=== PATIENT | male | born 1945 | race Caucasian/White ===

== ENCOUNTER → 2017-05-14 | Outpatient (CLI) | payer OTHER, BC ==
[~2017-05-14] MED LIST: ASPEC325 PO; CYM/30 PO; METO25TA3 PO; NPR500 PO; OXYC-57 PO
[2017-05-14 14:07] LABS: BASO % 0.6 %; BASO ABS # 0.03 K/uL (0-0.2); COMPLETE YES; EOS % 5.1 %; HEMATOCRIT 39.6 % (42-52); IG% 0.6 %; LYMPH % 21.5 %; LYMPH ABS # 1.14 K/uL (1.2-3.4); MEAN CORPUSCULAR HEMOGLOBIN 33.3 pg (25-34); MEAN CORPUSCULAR HGB CONC 33.6 g/dl (32-36); MEAN PLATELET VOLUME 11.1 fL (7.4-10.4); MONO % 10.2 %; PLATELET COUNT 194 K/uL (130-400); WHITE BLOOD COUNT 5.31 K/uL (4.8-10.8)
[2017-05-14 15:32] LABS: ALT/SGPT 81 U/L (12-78); AST/SGOT 48 U/L (15-37); BLOOD UREA NITROGEN 17 mg/dl (7-18); BUN/CREATININE RATIO 15.1 (10-20); CALCIUM 9.5 mg/dl (8.5-10.1); CARBON DIOXIDE 28 mmol/L (21-32); CHLORIDE 99 mmol/L (98-107); CHOLESTEROL 214 mg/dl (0-200); GLUCOSE 108 mg/dl (70-99); POTASSIUM 4.1 mmol/L (3.5-5.1); SODIUM 135 mmol/L (136-145); TRIGLYCERIDES 101 mg/dl (0-150); VERY LOW DENSITY LIPOPROT CALC 20 mg/dl
[2017-05-14 15:34] LABS: ALB/GLOB RATIO 1.1 (0.9-2); ALKALINE PHOSPHATASE 43 U/L (45-117); CHOLESTEROL/HDL RATIO 2.7; HDL CHOLESTEROL 79 mg/dl; LDL CHOLESTEROL CALCULATED 115 mg/dl
== END | disposition home or self-care (01) ==
LOC: C.LABSPEC 13:10
PROVIDERS: ATTEND Family Medicine
DX: J44.9 Chronic obstructive pulmonary disease, unspecified (principal); I10 Essential (primary) hypertension; Z68.41 Body mass index [BMI] 40.0-44.9, adult

== ENCOUNTER 2020-01-14 10:28 | Observation (INO) ==
--- NOTE | 2019-12-31 09:30 | Anesthesiology Consultation ---
Date of Service December 31, 2019 Assessment & Plan (1) Encounter for pre-operative examination: Chart Review Chart Review: Acceptable Risk for Surgery and Patient seen in Pre Admission Testing Teaching & Discussion Instructed NPO after midnight before surgery, except medications with 15 cc of water. Medication instructions provided according to the PAT guidelines. History Surgery Operation Date: 01/14/20 13:00 Proposed Procedures p Right Total Knee Arthroplasty - Kirit Lopes MD Height/Weight Height: 5 ft 11 in Weight: 130.5 kg Allergies Allergy/AdvReac Type Severity Reaction Status Date / Time oxycodone AdvReac Intermediate IRRITABLE Verified 12/30/19 09:27 Medications Home Medications Medication Instructions Recorded Confirmed Last Taken naproxen 500 mg tablet,delayed 500 mg PO DAILY PRN tab 11/05/19 12/30/19 Unknown release garlic 1,000 mg PO QAM 12/30/19 12/30/19 Unknown metoprolol tartrate 50 mg tablet 50 mg PO BID 12/30/19 12/30/19 Unknown losartan 25 mg PO QAM 12/31/19 12/31/19 Unknown Past Medical History Medical History Anxiety no medications Colon polyp COPD (chronic obstructive pulmonary disease) Has inhalers prescribed but does not use them. Depression no medications Hypertension H/O noncompliance with meds; recently seen by PCP after ED visit for chest pain (stress echo negative for ischemia) and reports now being compliant with Losartan and Metoprolol. Mesothelioma Morbid obesity Osteoarthritis Post traumatic stress disorder no medications Right knee DJD (Chronic) Sacroiliitis (Chronic) Sleep apnea cpap Exercise / Class Metabolic Activity III < 4 Walking/Shop/Light housework (Denies CP or SOB with ambulation on one level. +SOB with 1 FOS.) Past Family History Family History Other No family history of adverse response to anesthesia Past Surgical History Surgical History History of cataract surgery bilateral History of colonoscopy History of esophagogastroduodenoscopy (EGD) History of tonsillectomy Status post left partial knee replacement Past Anesthesia History No Hx of Anesthesia Complications and No Family Hx of Anesthesia Complications History of PONV No Hx of PONV and No Hx of Motion Sickness Social History Smoking Status: Never smoker tobacco type: smokeless tobacco Do You Dip or Chew Tobacco: Yes (1can/1 day (advised)) Hx Alcohol Use: Yes Alcohol type: wine alcohol intake frequency: 3 or more drinks per day (6+, starting at 7PM, none earlier) Hx Substance Use: No substance use type: does not use Review of Systems Pt denies any recent chest pain, shortness of breath, palpitations above baseline, cough, fever or URI. Physical Exam Vital Signs BP: 158/90 (pt is anxious today, got lost on the way to appt. Reports compliance with BP meds.) P: 65bpm SPO2: 97% RA T: 98.3 F R: 18 Constitutional + morbidly obese ENMT Mouth: + dentures (upper only) and + edentulous Thyromental Distance: < 3.5 Finger Breadths (3) Mallampati Class: III Neck + short neck, + thick neck and + facial hair (large bushy gray, shorter around mouth); neck extension not limited Respiratory normal respiratory effort Auscultation: lungs clear to auscultation bilaterally and + diminished lung sounds Cardiovascular Rate/Rhythm: regular rate and regular rhythm Heart Sounds: no murmur Very distant heart sounds. Somewhat obscured by bowel sounds. Testing Laboratory Results 12/31/19 09:40 12/31/19 09:40 PT 10.3 Seconds (9.0-12.0) 12/31/19 09:40 INR 1.0 (0.9-1.1) 12/31/19 09:40 APTT 28.4 Seconds (21.0-31.0) 12/31/19 09:40 Hemoglobin A1c 6.1 % (4.5-5.6) H 12/31/19 09:40 Blood Type A Positive 12/31/19 09:40 Antibody Screen NEGATIVE 12/31/19 09:40 Electrocardiogram Date: 03/17/19 Findings: + NSR @ (61bpm) Septal infarct, age undetermined. Compared with EKG of 06/23/2018, septal infarct is now present. Stress Test Date: 12/17/19 Type: nuclear Resting EF: 61% Increased GI uptake, soft tissue attenuation and motion. Fair quality study. Normal gated MPI wall motion and EF. There is a small in size, mild intensity, resting MPI defect of the distal inferior and basal lateral myocardium. The basal defect resolves with stress and the inferior defect become smaller this is suggestive of artifact. A small distal inferior infarct cannot be excluded. No ischemia suggested. Low risk, mildly abnormal study. Other Testing CT angios chest 12/16/2019 Multiple stable subcentimeter pulmonary nodules in both lungs, most appear postinflammatory or benign. Additional follow-up in 12 months is recommended. 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 No evidence of pulmonary embolism. No evidence of aortic dissection or significant aneurysm. Probable small intrarenal calculi. No hydronephrosis. 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 This is unchanged. Coronary vascular calcifications.
--- NOTE | 2019-12-31 09:40 | PAT Medication Instructions ---
Medication Instructions Date of Service December 31, 2019 Home Medications naproxen 500 mg tablet,delayed release 500 mg PO DAILY PRN garlic 1,000 mg PO QAM metoprolol tartrate 50 mg tablet 50 mg PO BID losartan 25 mg PO QAM ASK your surgeon for instructions naproxen 500 mg tablet,delayed release 500 mg PO DAILY PRN STOP taking 2 weeks before surgery If surgery is within 2 weeks, stop taking as soon as possible. garlic 1,000 mg PO QAM DO NOT take the morning of surgery losartan 25 mg PO QAM Take morning of surgery With a small sip of water, OTHERWISE NOTHING TO EAT OR DRINK AFTER MIDNIGHT: metoprolol tartrate 50 mg tablet 50 mg PO BID Take evening before surgery metoprolol tartrate 50 mg tablet 50 mg PO BID Other Notes If you have any questions please call us at [phone] or [phone] or [phone] or [phone]
[2019-12-31 10:04] LABS: Basophils # (auto) 0.03 K/uL (0-0.2); Basophils % (auto) 0.5 %; Eosinophils # (auto) 0.21 K/uL (0-0.5); Eosinophils % (auto) 3.2 %; Hematocrit (blood only) 43.3 % (42-52); Hemoglobin 14.5 g/dL (14.0-18.0); Immature Granulocytes # (auto) 0.06 K/uL (0.00-0.02); Immature Granulocytes % (auto) 0.9 %; Lymphocytes % (auto) 25.6 %; Mean Corpuscular Hemoglobin 32.7 pg (25-34); Mean Corpuscular Hgb Conc 33.5 g/dL (32-36); Mean Corpuscular Volume 97.5 fL (80-100); Mean Platelet Volume 9.8 fL (7.4-10.4); Monocytes % (auto) 7.5 %; Neutrophils # (auto) 4.13 K/uL (1.4-6.5); Neutrophils % (auto) 62.3 %; Platelet Count 190 K/uL (130-400); RDW Coefficient of Variation 12.9 % (11.5-14.5); RDW Standard Deviation 46.1 fL (36.4-46.3); Red Blood Count 4.44 M/uL (4.7-6.1); White Blood Count 6.63 K/uL (4.8-10.8)
[2019-12-31 10:11] LABS: BUN Creatinine Ratio 17.3 (10-20); Blood Urea Nitrogen 18 mg/dl (7-18); C Reactive Protein < 0.29 mg/dl (0-0.29); Calcium 9.2 mg/dl (8.5-10.1); Carbon Dioxide 32 mmol/L (21-32); Chloride 103 mmol/L (98-107); Creatinine Clr Calc Pharmacy 86.8 ml/min; Est GFR (African American) 80.9; Est GFR (Non-African American) 69.8; Estimated Average Glucose 128 mg/dl; Glucose 104 mg/dl (70-99); Hemoglobin A1C 6.1 % (4.5-5.6); Potassium 4.3 mmol/L (3.5-5.1); Sodium 139 mmol/L (136-145)
[2019-12-31 10:15] LABS: Partial Thromboplastin Time 28.4 Seconds (21.0-31.0); Prothrombin Time 10.3 Seconds (9.0-12.0)
[~2020-01-14 10:28] MED LIST changes: +ACETAMINOPHEN 500 MG TAB PO SCH; -ASPEC325 PO; +BUPIVACAINE 0.5 % 5 MG/1 ML PF 10ML VIAL ONE; +BUPIVACAINE LIPOSOME/PF 266 MG, BUPIVACAINE/EPINEPHRINE 50 ML, SODIUM CHLORIDE 0.9% 30 ... INFIL SCH; +CEFAZOLIN 2000MG 2,000 MG/15 ML SYR IV SCH; -CYM/30 PO; +GABAPENTIN 300 MG CAP PO SCH; +LIDOCAINE HCL 2% 2 ML VIAL/AMP(20MG/ML) INFIL ONE; +LR 500ML BOLUS, THEN 15ML/HR IV SCH; +LR 60ML/HR IV SCH; -METO25TA3 PO; +METOCLOPRAMIDE HCL 10 MG TABLET PO SCH; +MIDAZOLAM HCL 1 MG/ML 2ML VIAL ONE; -NPR500 PO; -OXYC-57 PO; +PROPOFOL IV EMULSION 10 MG/ML 20 ML VIAL IV ONE; +ROPIVACAINE 0.5% 5 MG/ML 30 ML VIAL ONE; +TRANEXAMIC ACID 1,000 MG **IV Intra-op IV SCH
--- NOTE | 2020-01-14 10:39 | History & Physical Bridge Note ---
Date of Service January 14, 2020 History & Physical Bridge Note I have examined the patient, reviewed the History & Physical and in the interval since the performance of the History & Physical I have noted the following changes of clinical significance: no changes noted
[2020-01-14] MEDS ORDERED: BUPIVACAINE LIPOSOME 1.3% 266 MG/20 ML VIAL ONE (10:58)
[2020-01-14] MEDS ORDERED: BACITRACIN INJ 50,000 UNIT VIAL ONE (10:58)
[2020-01-14] MEDS ORDERED: BUPIVACAINE/EPINEPHRINE 0.25% 1:200,000 30 ML VIAL ONE (10:58)
[2020-01-14] MEDS ORDERED: SODIUM CHLORIDE 0.9% PF 50 ML VIAL ONE (10:58)
[2020-01-14] MEDS ORDERED: ONDANSETRON INJ 2 MG/ML 2 ML VIAL IV PRN ×2 (11:35→15:35)
[2020-01-14] MEDS ORDERED: ePHEDrine sulfate 50 MG/ML AMP IV PRN (11:35)
[2020-01-14] MEDS ORDERED: HYDROmorphone INJ 1 MG/ML SYRINGE IV PRN (11:35)
[2020-01-14] MEDS ORDERED: ATROPINE SULFATE 0.1 MG/ML 10ML SYR IV PRN (11:35)
[2020-01-14] MEDS ORDERED: KETOROLAC 30 MG/ML VIAL IV PRN (11:37)
[2020-01-14] MEDS ORDERED: PROPOFOL IV EMULSION 10 MG/ML 20 ML VIAL IV ONE (12:41)
[2020-01-14] MEDS ORDERED: ONDANSETRON INJ 2 MG/ML 2 ML VIAL ONE (12:41)
[2020-01-14] MEDS ORDERED: KETAMINE HCL INJ 50 MG/ML 10 ML VIAL ONE (12:58)
[2020-01-14] MEDS ORDERED: CEFAZOLIN 1000MG 1,000 MG/7.5 ML SYR IV ONE (13:45)
[2020-01-14] MEDS ORDERED: fentaNYL citrate 100 MCG/2 ML VIAL ONE (14:01)
--- NOTE | 2020-01-14 14:17 | Post Operative Brief Note ---
PG Immediate Post Op with CF Date of Surgery January 14, 2020 Pre & Post Diagnosis Operation Date: 01/14/20 12:30 Pre-Op Diagnosis: Right Knee Degenerative Joint Disease Post-Op Diagnosis: Right Knee Degenerative Joint Disease I identified the patient and participated in the time-out.: Yes Procedure Operation Date: 01/14/20 12:30 Actual Procedures p Right Total Knee Arthroplasty(Right) - Kirit Lopes MD Surgeon Kirit Lopes MD President Sales [employer] Ana, PAC Estimated Blood Loss 50 Findings Consistent with Post-Op Diagnosis Fluids 1800 cc Specimens Specimen Description: Permanent specimen A: right knee bone and tissue Drains Lui Catheter (16fr lui catheter placed by ST Jus, without difficulty; lui demonstrates clear yellow urine. Output measured and recorded by anesthesia.) Anesthesia Type Spinal MAC Complications none Disposition Accompanied Patient To Recovery: No Disposition: Recovery Room
--- NOTE | 2020-01-14 14:32 | Operative Report ---
Post Operative Report Pre & Post Diagnosis Operation Date: 01/14/20 12:30 Pre-Op Diagnosis: Right Knee Degenerative Joint Disease Post-Op Diagnosis: Right Knee Degenerative Joint Disease I identified the patient and participated in the time-out.: Yes Procedure Operation Date: 01/14/20 12:30 Actual Procedures p Right Total Knee Arthroplasty(Right) - Kirit Lopes MD Surgeon Kirit Lopes MD Mortgage Analyst Ana, PAC Estimated Blood Loss 50 Findings Consistent with Post-Op Diagnosis Operative findings revealed advanced right knee medial compartment DJD with grade 4 [id number] disease of the medial compartment. The lateral and patellofemoral compartments were pretty well-preserved. He had a moderate-sized joint effusion. Not much in way of eburnation but full-thickness cartilage loss medially. Some small osteophytes medially as well. Fluids 1800 cc. Specimens Right knee sent for pathology. Drains None. Anesthesia Type Spinal MAC Complications none Disposition Accompanied Patient To Recovery: No Disposition: Recovery Room Indications Patient is a 74-year-old gentleman is had a very long history of bilateral knee problems. He underwent a left abducens knee replacement years ago which did not go well really well from the pain standpoint. He continues to bothered by pain in the side but he is developed increased pain discomfort in his right knee. Is been through extensive conservative treatment tried to put knee replacement off as long as possible. He fa with or had a concerning partial knee replacement. Iled all conservative care. He elected proceed with total knee arthroplasty. He had no interest in proceeding Description of Procedure Operative implants consist of: 1. Biomet Vanguard size 72.5 right posterior by femoral component. 2. Biomet size 75 tibial tray. 3. 10 mm posterior box polyethylene insert. 4. 31 x 8 all poly-patella. Patient was taken to the operating room identified and placed in the operating table supine position protectors were properly padded. IV antibiotics arrived by anesthesia team. Spinal anesthetic and abductor canal block had been provided in the holding area. Morrissey catheter was placed in sterile fashion. Right factor was then placed in the right lower extremities and prepped and draped in usual sterile fashion. The right leg was elevated and exsanguinated with use of an Esmarch and turns placed at 3 mmHg. An anterior approach of the right knee was then performed to longitudinal incision centered over the patella. Sharp dissection was cut through subcutaneous tissue down to the extensor mechanism. Medial parapatellar arthrotomy incision was made. Some subperiosteal dissection was carried out medially. The fat pad was resected from each patella tendon. Lateral patellofemoral ligament was released. Patella was subluxated laterally knee was flexed. The osteophytes were taken off distal femur. The ACL and PCL were then released from distal femur the tibia subluxated anteriorly. The external tibial alignment jig was then placed in the interface the tibia and adjusted 16 mm medially. Proximal tibial cut was made to move about 2 mm of bone from most efficient aspect medial tibial plateau. The tibia was then sized to a size 75. Attention then drawn to the femur. The distal femur was entered with a sharp drop with intramedullary canal was suction. A right 6 degree valgus cutting guide was placed. Distal femoral cutting block was pinned in place. Distal femoral cut was made to take an additional 3 mm of bone off distal femur. The femur was then sized to a size 72.5. We did downsize a slightly. The AP cutting block was pinned parallel to the epicondylar axis which was 3 degrees of external rotation. The anterior cut, anterior chamfer, posterior cut, posterior chamfer cuts were made. Box cutting guide was placed in just slight lateral box cut was made. The knee was flexed. The remnants of the medial lateral menisci were excised. The osteophytes were taken off the posterior aspect of the femur. A trial femoral component was placed. The tibial tray was pinned in maximum external rotation and drill and stem punch were used to create defect in the proximal tibia for the tibial tray. Knee was then trialed and the 10 mm insert fit most appropriately. Attention drawn the patella. Patella was cleaned of all soft tissue. Patella thickness measured 23 mm in thickness and was cut down to 14. Was sized to a size 31 patella. Locals were drilled for 31 patella. Lateral osteophytes removed. Patella button was placed. Knee was taken through range of motion and the patella tracked nicely with no thumbs test. Attention drawn to place the permanent components. All trial components were removed. Bone plug was placed in the distal femur limit blood loss. L batch Pal[place]os G cement was mixed. A Biomet Vanguard size 72.5 Po stabilized femoral component, a size 75 tibial tray, 10 mm posterior box polyethylene insert, and a 31 x 8 all poly-patella were then cemented in place. Knee was brought under full extension total cement hardened. Final cement check was then performed. The pericapsular tissues were injected with total of 100 cc of combination of 20 cc of Exparel, 30 cc of normal saline, 50 cc of quarter percent Marcaine with epinephrine. Wounds once again irrigated. The extensor mechanism then closed with combination 1 PDS suture #1 Vicryl suture in [id number] fashion for extensor mechanism checked found to be intact the subcutaneous tissue then closed with 2 Dexon suture in a buried interrupted fashion skin was closed skin [place]. Leg was then cleaned dried a sterile dressing was Xeroform, 4 x 4's, sterile cast padding, Igor bandage were applied. Patient then transferred to the recovery room in stable condition. Patient tolerated the procedure well and there were no complications. I attest to the content of the Intraoperative Record and any orders documented therein. Any exceptions are noted below.
--- NOTE | 2020-01-14 14:47 | XRay Report ---
XR knee RT 1 or 2V routine CLINICAL HISTORY: Surgical Post Op COMPARISON: None. DISCUSSION: There are postsurgical changes of a total right knee arthroplasty and patellar resurfacin g. The femoral and tibial components appear well seated. There are overlying skin [place]. There is a ir within the soft tissues consistent with history of recent surgery. IMPRESSION: Postsurgical changes of a total right knee arthroplasty. ACT 112: Negative or not required by law. Electronically signed by: Mihir Cline M.D. 01/14/2020 2:45 PM
--- NOTE | 2020-01-14 15:09 | Anesthesiology Progress Note ---
Date of Service January 14, 2020 Anesthesia Post Procedure Vital Signs Vital Signs: Temp Pulse Pulse Resp BP Pulse Ox 01/14/20 15:00 62 18 151/89 H 98 01/14/20 14:50 64 18 152/78 H 100 01/14/20 14:40 63 18 139/86 99 01/14/20 14:30 70 18 133/84 100 01/14/20 14:23 36.7 C 78 18 164/81 H 99 01/14/20 10:54 36.5 C 74 22 199/98 H 96 Transfer of Care Handoff Completed per policy Notes Mental Status: alert / awake / arousable Patient Amnestic to Procedure: Yes Nausea / Vomiting: adequately controlled Pain: adequately controlled Airway Patency, RR, SpO2: stable & adequate BP & HR: stable & adequate Hydration State: stable & adequate Neuraxial Anesthesia: was administered and sensory block is resolving Anesthetic Complications: no major complications apparent
[2020-01-14] MEDS ORDERED: bisacodyL 10 MG SUPP PR PRN (15:35)
[2020-01-14] MEDS ORDERED: MAGNESIUM HYDROXIDE SUSP 30 ML UDC PO PRN (15:35)
[2020-01-14] MEDS ORDERED: NALOXONE HCL 0.4 MG/1 ML VIAL/CARP IV PRN (15:35)
[2020-01-14] MEDS ORDERED: HYDROmorphone INJ 0.5 MG/0.5 ML SYR IV PRN (15:35)
[2020-01-14] MEDS ORDERED: TAMSULOSIN HCL 0.4 MG CAP PO PRN (15:35)
[2020-01-14] MEDS ORDERED: METOCLOPRAMIDE HCL INJ 5 MG/ML 2 ML VIAL IV PRN (15:35)
[2020-01-14] MEDS ORDERED: ALUMINUM/MAGNESIUM SUSP 30 ML UDC PO PRN (15:35)
[2020-01-14] MEDS: SODIUM CHLORIDE 0.9% 1000ML 1,000 ML IV SCH ×2 (16:04→22:18)
[2020-01-14] MEDS: HYDROmorphone HCL 2 MG TAB PO PRN ×2 (17:18→21:05)
[2020-01-14] MEDS: ASCORBIC ACID 500 MG TAB PO SCH (17:21)
[2020-01-14] MEDS: FERROUS GLUCONATE 324 MG TAB PO SCH (17:21)
[2020-01-14] MEDS: KETOROLAC TROMETHAMINE 15 MG/ML VIAL IV SCH ×2 (17:22→23:34)
[2020-01-14] MEDS ORDERED: TRANEXAMIC ACID / 0.7% NACL 1,000 MG/100 ML BAG IV SCH (20:22)
[2020-01-14] MEDS: CEFAZOLIN 2000MG 2,000 MG/15 ML SYR IV SCH (20:56)
[2020-01-14] MEDS: DOCUSATE SODIUM 100 MG CAP PO SCH (20:56)
[2020-01-14] MEDS: ASPIRIN 81 MG ECTAB PO SCH (20:56)
[2020-01-14] MEDS: METOPROLOL TARTRATE 50 MG TAB PO SCH (20:57)
[2020-01-14] MEDS ORDERED: SENNA 8.6 MG TAB PO SCH (21:00)
[2020-01-14] MEDS: TAPENTADOL HCL ER 50 MG TABCR PO SCH (21:05)
[2020-01-14] MEDS: ACETAMINOPHEN 500 MG TAB PO SCH (22:18)
[2020-01-15] MEDS: CEFAZOLIN 2000MG 2,000 MG/15 ML SYR IV SCH (04:15)
[2020-01-15 05:03] LABS: Hematocrit (blood only) 35.1 % (42-52); Hemoglobin 11.3 g/dL (14.0-18.0); Mean Corpuscular Hemoglobin 32.1 pg (25-34); Mean Corpuscular Hgb Conc 32.2 g/dL (32-36); Mean Corpuscular Volume 99.7 fL (80-100); Mean Platelet Volume 10.2 fL (7.4-10.4); Platelet Count 153 K/uL (130-400); RDW Coefficient of Variation 13.3 % (11.5-14.5); RDW Standard Deviation 47.7 fL (36.4-46.3); Red Blood Count 3.52 M/uL (4.7-6.1); White Blood Count 6.62 K/uL (4.8-10.8)
[2020-01-15 05:42] LABS: BUN Creatinine Ratio 14.2 (10-20); Creatinine Clr Calc Pharmacy 67.9 ml/min; Est GFR (African American) 59.8; Est GFR (Non-African American) 51.6; Potassium 4.4 mmol/L (3.5-5.1)
[2020-01-15] MEDS: SODIUM CHLORIDE 0.9% 1000ML 1,000 ML IV SCH (05:46)
[2020-01-15] MEDS: ACETAMINOPHEN 500 MG TAB PO SCH ×2 (05:48→13:33)
[2020-01-15] MEDS: KETOROLAC TROMETHAMINE 15 MG/ML VIAL IV SCH ×2 (05:48→12:32)
--- NOTE | 2020-01-15 08:16 | Progress Note ---
DATE: 01/15/2020 SUBJECTIVE: A 74-year-old gentleman postop day 1 from a right knee replacement. He is doing pretty well. Pain is controlled. Denies any chest pain or shortness of breath. Not feeling dizzy or lightheaded. OBJECTIVE: VITAL SIGNS: Temperature 36.7. Vital signs stable. GENERAL: Shows a pleasant, middle-aged male. He is sitting up in bed, looks pretty comfortable. EXTREMITIES: Examination of the right leg reveals the dressing to be in place. Just a little bit of bloody drainage. He can dorsiflex and plantarflex his foot appropriately. Cannot quite do a straight leg raise. He is neurologically intact. LABORATORY DATA: Hemoglobin is 11.3. Hematocrit 35.1. Electrolytes are stable. ASSESSMENT: A 74-year-old gentleman postop day 1 from a right knee replacement, doing reasonably well. Pain is reasonably well controlled. He is anxious and really wants to go home today. PLAN: 1. DVT prophylaxis including thigh-high TEDs, SCDs and aspirin twice a day. 2. PT/OT. Weight bear as tolerated. Right total knee protocol. 3. Pain control, doing pretty well with current pain regimen. 4. Disposition: Plan to discharge to home with some home health if he does okay in therapy today.
[2020-01-15] MEDS ORDERED: MULTIVITAMIN TAB PO SCH (09:00)
[2020-01-15] MEDS ORDERED: LOSARTAN POTASSIUM 25 MG TAB PO SCH (09:00)
[2020-01-15] MEDS ORDERED: NON-FORMULARY MEDICATION (Garlic 1,000 MG) PO SCH (09:00)
--- NOTE | 2020-01-15 09:09 | Anesthesiology Progress Note ---
Date of Service January 15, 2020 Anesthesia Post Procedure Vital Signs Vital Signs: Temp Pulse Pulse Pulse Resp BP Pulse Ox 01/15/20 07:21 36.7 C 65 22 161/97 H 98 01/15/20 02:58 36.7 C 73 16 147/74 H 97 01/14/20 23:26 36.9 C 69 18 160/95 H 95 01/14/20 20:52 80 186/80 H 01/14/20 18:26 37.0 C 75 17 181/80 H 96 01/14/20 17:15 36.5 C 69 17 146/82 H 96 01/14/20 16:26 36.5 C 85 17 155/73 H 97 01/14/20 15:55 36.7 C 73 18 153/79 H 99 01/14/20 15:25 36.7 C 63 18 150/92 H 97 01/14/20 15:10 36.8 C 62 18 140/84 98 01/14/20 15:00 62 18 151/89 H 98 01/14/20 14:50 64 18 152/78 H 100 01/14/20 14:40 63 18 139/86 99 01/14/20 14:30 70 18 133/84 100 01/14/20 14:23 36.7 C 78 18 164/81 H 99 01/14/20 10:54 36.5 C 74 22 199/98 H 96 Notes Mental Status: alert / awake / arousable and participated in evaluation Patient Amnestic to Procedure: Yes Nausea / Vomiting: adequately controlled Pain: adequately controlled Airway Patency, RR, SpO2: stable & adequate BP & HR: stable & adequate Hydration State: stable & adequate Neuraxial Anesthesia: sensory block resolved Anesthetic Complications: no major complications apparent and Pt Satisfied with anesthetic care
[2020-01-15] MEDS: FERROUS GLUCONATE 324 MG TAB PO SCH (09:20)
[2020-01-15] MEDS: TAPENTADOL HCL ER 50 MG TABCR PO SCH (09:20)
[2020-01-15] MEDS: DOCUSATE SODIUM 100 MG CAP PO SCH (09:21)
[2020-01-15] MEDS: ASCORBIC ACID 500 MG TAB PO SCH (09:21)
[2020-01-15] MEDS: METOPROLOL TARTRATE 50 MG TAB PO SCH (09:22)
[2020-01-15] MEDS: ASPIRIN 81 MG ECTAB PO SCH (09:22)
[2020-01-15] MEDS: HYDROmorphone HCL 2 MG TAB PO PRN ×2 (10:15→14:27)
--- NOTE | 2020-01-19 14:40 | Discharge Summary ---
ADMITTING PHYSICIAN AND SURGEON: Dr. Kirit Lopes. ADMITTING DIAGNOSIS: Right knee degenerative joint disease. SURGERY PERFORMED: Right total knee arthroplasty. SECONDARY DIAGNOSES: Hypertension, elevated cholesterol, sleep apnea, obesity, low back pain, sciatica. CONSULTS: None obtained. HISTORY AND PHYSICAL EXAMINATION: Well documented in the patient's chart. HOSPITAL COURSE: The patient was admitted on 01/14/2020 underwent total knee arthroplasty, tolerated the procedure well. There were no complications. He was transferred to the PACU postoperatively and later to the orthopedic floor for further care. He was given Ancef for antibiotic prophylaxis, DELMI stockings, SCDs and aspirin for DVT prophylaxis. Hemoglobin, hematocrit and vital signs were monitored during his hospital stay and remained stable, did not require any blood transfusions. There were no complications. By postoperative day 1 he was tolerating a regular diet, pain was controlled with oral pain medicine. He was participating in physical therapy. On postop day 1 he was discharged home, set up with home health services, given printed discharge instructions as well as new prescriptions for extra strength Tylenol, aspirin and hydromorphone. Continue his home medications, continue physical therapy, weightbearing as tolerated, DELMI stockings. Follow up approximately 2 weeks postop or sooner if there are any problems or concerns.
== END 2020-01-15 14:55 | disposition home health service (06) ==
LOC: ASU 10:28 → 3E 10:28